=== PATIENT | male | born 1995 | race Caucasian/White ===

== ENCOUNTER 2016-11-10 08:42 | Inpatient (IN) | payer OTHER ==
[~2016-11-10] VITALS: Ht 182.9 cm; Wt 65.8 kg
--- NOTE | 2016-11-10 20:00 | NUR ---
INTAKE ASSESSMENT INTAKE ASSESSMENT DONE.PT IS A/O X 4.SPEECH IS CLEAR,AMBULATES WITH A STEADY GAIT.VITAL SIGNS AR STABLE.NO C/O PAIN OR S/S OF ACUTE DISTRESS NOTED.PT IS IN STABLE CONDITION TO PROCEED TO DETOX UNIT.
[2016-11-10] MEDS ORDERED: HYDROXYZINE PAMOATE 25 MG CAPSULE PO PRN (20:30)
[2016-11-10] MEDS ORDERED: MAGNESIUM HYDROXIDE 30 ML LIQUID UDC PO PRN (20:30)
[2016-11-10] MEDS ORDERED: METHOCARBAMOL 750 MG TABLET PO PRN (20:30)
[2016-11-10] MEDS ORDERED: ACETAMINOPHEN 325 MG TABLET PO PRN (20:30)
[2016-11-10] MEDS ORDERED: ONDANSETRON 4 MG/2 ML VIAL IM PRN (20:30)
[2016-11-10] MEDS ORDERED: DICYCLOMINE HCL 20 MG TABLET PO PRN (20:30)
[2016-11-10] MEDS ORDERED: MIRALAX 17 GM POWD.PACK PO PRN (20:30)
[2016-11-10] MEDS ORDERED: CLONIDINE HCL 0.1 MG TABLET PO PRN (20:30)
[2016-11-10] MEDS ORDERED: diphenhydrAMINE 50 MG CAPSULE PO PRN (20:30)
[2016-11-10] MEDS ORDERED: LOPERAMIDE HCL 2 MG CAPSULE PO PRN ×2 (20:30)
[2016-11-10] MEDS ORDERED: IBUPROFEN 600 MG TABLET PO PRN (20:30)
[2016-11-10] MEDS ORDERED: ALBUTEROL SULFATE 8 GM HFA.AER.AD IH PRN (20:30)
[2016-11-10] MEDS ORDERED: ONDANSETRON ODT 4 MG TAB.RAPDIS SL PRN (20:30)
[2016-11-10] MEDS ORDERED: MAG HYDROX/AL HYDROX/SIMETH 30 ML LIQUID UDC PO PRN (20:30)
--- NOTE | 2016-11-10 20:30 | NUR ---
ADMISSION NOTE HT=6 FEET,0 INCHES. UH=687 POUNDS. B/P=137/80,T=97.4,HR=95,R=16,O2 SAT=99%. Admitting 20 y/o male to [facility] for Meth dependency.Pt is A/O X 4,ambulates with a steady gait,skin is intact,warm and dry to touch.Pt has track angela on bilateral AC from IV drug use.No s/s of infection noted.Pt has NKA,denies any medical problems and does not take any medications.Placed on Regular diet and Full Code status.Pt reports PMH of depression;stated he uses Meth when he is feeling depressed.Pt is homeless,said he got kicked out of his house because of using meth,now he is addicted and cannot stop using.Breathing is even and non labored,no s/s of respiratory distress noted;abdomen is soft and palpable with bowel sounds present x 4;no c/o constipation,N/V/D noted,no c/o pain noted.Pt denies any SI/HI.No HX of seizures noted.PCP IS Dr.De Olson.Pt oriented to room and unit,care plan and safety checks initiated,snack provided.Pt seen by Dr Nicholson.Drug use as follow:-- METH - Pt has been using Meth for 4 years,approximately 4 to 5 grams IV daily. LAST USED - 2 grams on 11-07-16 TREATMENT HX- [facility] IN [place] -1 YEAR AGO,FOR 21 DAYS. LONGEST SOBER PERIOD WAS 5 MONTHS ABOUT 2 YEARS AGO. Addendum: 11/10/16 at 2357 by SUMIT CRAWFORD RN PT HAS HX OF ASTHMA AND USES ALBUTEROL INHALER ON NEEDED BASIS.
[2016-11-10 20:36] LABS: *AMPHETAMINE, URINE NEGATIVE (NEGATIVE); *BARBITURATE, URINE NEGATIVE (NEGATIVE); *CANNABINOID, URINE NEGATIVE (NEGATIVE); *COCCAINE, URINE NEGATIVE (NEGATIVE); *OPIATE, URINE NEGATIVE (NEGATIVE); *PHENCYCLIDINE SCREEN,URINE NEGATIVE (NEGATIVE)
[2016-11-10 21:01] LABS: BASOPHILS # (AUTO) 0.1 K/uL (0.0-8.0); BASOPHILS % (AUTO) 0.5 % (0.0-2.0); EOSINOPHILS # (AUTO) 0.5 K/uL (0.0-0.7); EOSINOPHILS % (AUTO) 4.4 % (0.0-7.0); HEMATOCRIT 50.4 % (40-50); HEMOGLOBIN 16.2 G/DL (14.0-18.0); LYMPHOCYTES # (AUTO) 5.4 K/UL (0.8-4.8); LYMPHOCYTES % (AUTO) 44.9 % (20.5-74.5); MEAN CORPUSCULAR HEMOGLOBIN 28.6 UUG (27.0-31.0); MEAN CORPUSCULAR HGB CONC 32 g/dL (32.0-37.0); MEAN CORPUSCULAR VOLUME 89.3 FL (82.0-92.0); MONOCYTES # (AUTO) 1.1 K/UL (0.1-1.30); MONOCYTES % (AUTO) 8.7 % (0-11); NEUTROPHILS % (AUTO) 41.5 % (31.5-64.5); PLATELET COUNT (AUTO) 248 K/UL (150-450); RED BLOOD CELL COUNT(AUTO) 5.64 MIL/UL (4.7-6.1); WHITE BLOOD COUNT (AUTO) 12.1 K/UL (4.0-11.2)
[2016-11-10 21:10] LABS: ALANINE AMINOTRANSFERASE 37 U/L (16-63); ALKALINE PHOSPHATASE 84 U/L (50-136); ASPARTATE AMINOTRANSFERASE 25 U/L (15-37); BILIRUBIN,TOTAL 0.3 mg/dL (0.2-1.0); CARBON DIOXIDE 32 mmol/L (21-32); CHLORIDE 101 mmol/L (98-107); CREATININE 0.9 mg/dL (0.6-1.3); GLUCOSE 83 mg/dL (74-106); MAGNESIUM 1.6 mg/dL (1.8-2.4); POTASSIUM 3.4 mmol/L (3.5-5.1); TOTAL PROTEIN, SERUM 6.9 g/dL (6.4-8.2); UREA NITROGEN, BLOOD 12 mg/dL (7-18)
[2016-11-10 21:18] LABS: ETHANOL < 3 MG/DL (0-0)
[2016-11-10 21:20] LABS: THYROID STIMULATING HORMONE 6.461 mIU/mL (0.358-3.740)
[2016-11-11] VITALS: BP 110/54
[2016-11-11] MEDS ORDERED: ALBU0.63 INH (00:03)
[2016-11-11 04:00] VITALS: BP 108/70
--- NOTE | 2016-11-11 06:34 | NUR ---
END OF SHIFT-- Pt is a 20 y/o male to [facility] for Meth dependency.Pt is A/O X 4,ambulates with a steady gait,skin is intact,warm and dry to touch.Pt has track angela on bilateral AC from IV drug use.No s/s of infection noted.Pt has NKA,denies any medical problems and does not take any medications.Placed on Regular diet and Full Code status.Pt reports PMH of asthma and depression.No PRN meds given.Pt slept 9 hrs,fluid intake was 295 mls,voided x 1 .All safety measures in place,call light within reach.Will continue to monitor.
--- NOTE | 2016-11-11 07:44 | NUR ---
BEGINNING OF SHIFT Patient endorsement report received from assistant shift supervisor, all pertinent information discussed. Patient admitted on 11/10/2016 with admitting Dx: Methamphetamine dependence, with substance use of: methamphetamine 4-5 grams daily for 4 years. Patient currently under close observation, will monitor closely. Per assistant shift supervisor patient received no PRNs: Patient slept for 9 hours. Patient received awake, alert and oriented x4. Educated Patient regarding plan of care for the day and medication regimen with good verbal understanding, Safety measures in place. all needs met and rendered, will continue to monitor.
[2016-11-11 08:21] VITALS: BP 120/75
[2016-11-11] MEDS ORDERED: ALBUTEROL SULFATE 1.25 MG/3 ML NEBU NEB PRN (08:45)
[2016-11-11] MEDS ORDERED: DOCUSATE SODIUM 250 MG CAPSULE PO SCH (09:00)
[2016-11-11] MEDS ORDERED: MAGNESIUM OXIDE 400 MG TABLET PO ONE (09:00)
[2016-11-11] MEDS ORDERED: MULTIVITAMINS,THERAPEUTIC TABLET PO SCH (09:00)
[2016-11-11] MEDS ORDERED: TUBERCULIN,PURIF.PROT.DERIV. 5 TU/0.1 ML TEST ID ONE (09:00)
[2016-11-11] MEDS ORDERED: POTASSIUM CHLORIDE 20 MEQ TAB.PRT.SR PO ONE (09:00)
--- NOTE | 2016-11-11 11:03 | NUR ---
ENDORSED CARE Patient endorsed to staff nurse, all pertinent information discussed. Relayed WBC level of 12.[address] Nicholson with no new orders. Patient afebrile. Patients potassium and magnesium were replaced as ordered. Patient endorsed at 1103, VS WNL.
--- NOTE | 2016-11-11 11:04 | NUR ---
Assumed Care: Assumed care for the patient at this time. Patient is a 20 year old male admitted for methamphetamine dependence who was placed on PRNs at this time. NKA. FULL CODE. Regular diet. On fall and seizure precautions. VS stable. Educated patient on his current plan of care and his medication regimen. Oral fluids encouraged. All needs met and attended. Will continue to monitor closely.
[2016-11-11 12:00] VITALS: BP 110/74
[2016-11-11 13:19] LABS: *AMPHETAMINE, URINE NEGATIVE (NEGATIVE); *BARBITURATE, URINE NEGATIVE (NEGATIVE); *CANNABINOID, URINE NEGATIVE (NEGATIVE); *COCCAINE, URINE NEGATIVE (NEGATIVE); *OPIATE, URINE NEGATIVE (NEGATIVE); *PHENCYCLIDINE SCREEN,URINE NEGATIVE (NEGATIVE)
--- NOTE | 2016-11-11 13:30 | NUR ---
Discharge Instructions: Educated patient on his discharge instructions. Patient verbalized good understanding. Patient will be discharging to [facility] to be picked up by [facility]. Patient did not bring any home medications. Patient is in stable condition. VS stable. No s/s of withdrawal noted. CXR done. UDS in and resulted.
--- NOTE | 2016-11-11 14:18 | NUR ---
D/C NOTES Pt is A/O x4. V/S remain WNL. Pt denies SI/HI or hallucinations. Pt shows no s/s of acute withdrawal at this time, and is stable. has medically cleared pt for d/c. Education on Hepatitis C, smoking cessation and medication side effects provided. Pt verbalizes understanding. All pt belongings are in belonging bag, pt did not have prescriptions, pt did not have any home medications. Refuses PNU vaccination. Pt is being accompanied by [employer] at this time to be transported to rehab. All needs met.
[2016-11-12 08:08] LABS: HEPATITIS B SURFACE AG Negative (Negative)
== END 2016-11-11 14:18 | disposition other institution (70) | DRG 897 ==
LOC: SRC 19:04
PROVIDERS: ADMIT Internal Medicine; ATTEND Internal Medicine
PROC: HZ2ZZZZ Detoxification Services for Substance Abuse Treatment (ICD-10-PCS; principal; 2016-11-10)
DX: F15.23 Other stimulant dependence with withdrawal (principal); F41.9 Anxiety disorder, unspecified; J45.20 Mild intermittent asthma, uncomplicated; Z81.8 Family history of other mental and behavioral disorders; Z81.3 Family history of other psychoactive substance abuse and dependence; Z59.0 Homelessness; F17.210 Nicotine dependence, cigarettes, uncomplicated; F32.9 Major depressive disorder, single episode, unspecified; E83.42 Hypomagnesemia; E87.6 Hypokalemia; D72.823 Leukemoid reaction
CPT/HCPCS: 36415; 71010; 80307; 83735; 84443; 85025; 86592; 86705; 86803; 87340; 87806; G0480